=== PATIENT | male | born 1995 | race Caucasian/White ===

== ENCOUNTER 2018-04-23 22:56 | Emergency (ER) | payer OTHER ==
[~2018-04-23] VITALS: Ht 172.7 cm; Wt 60.0 kg
[2018-04-23 23:18] VITALS: Ht 172.7 cm; Wt 60.0 kg
[2018-04-24 01:00] VITALS: BP 141/90
== END 2018-04-24 01:00 | disposition home or self-care (01) ==
LOC: ED 22:56
DX: J02.9 Acute pharyngitis, unspecified (principal)